=== PATIENT | female | born 1985 | race Two or more races ===

== ENCOUNTER 2024-02-11 21:28 | Inpatient (IN) | payer OTHER ==
[~2024-02-11] VITALS: Ht 165.1 cm; Wt 100.2 kg
[2024-02-11 22:02] VITALS: BP 131/70
[2024-02-11 22:25] VITALS: BP 131/70
[2024-02-11] MEDS ORDERED: AMPICILLIN SODIUM 2,000 MG VIAL IV ONE (22:30)
[2024-02-11] MEDS ORDERED: PRENATAL TABLE1 EAC1 PO (22:33)
[2024-02-11 23:21] LABS: PH,URINE 6.5 (5.0-8.0); URINE APPEARANCE Clear; URINE BILIRRUBIN Negative (NEGATIVE); URINE BLOOD Large; URINE COLOR Yellow; URINE GLUCOSE Negative (NEGATIVE); URINE KETONE Negative (NEGATIVE); URINE LEUKOCYTE Moderate; URINE NITRATE Negative; URINE PROTEIN Trace (NEGATIVE); URINE UROBILINOGEN 0.2 E.U./dl
[2024-02-11 23:22] LABS: URINE BACTERIA 4225.9 uL (0.0-1933); URINE EPITHELIAL CELLS 70.3 uL (0.0-38.8); URINE RBC 31.4 uL (0.0-20.8); URINE WBC 151.2 uL (0.0-23.2)
[2024-02-11 23:30] LABS: HEMATOCRIT 34.8 % (36.0-45.00); HEMOGLOBIN 11.8 g/dL (12.0-15.00); MEAN CELL VOLUME 84.1 fL (80.00-100.00); MEAN CORPUSCULAR HEMOGLOBIN 28.6 pg (27.00-32.0); PLATELET COUNT 340 K/uL (150-450); RED BLOOD COUNT 4.13 M/uL (4.00-6.00); RED CELL DISTRIBUTION WIDTH 13.1 % (11.5-14.5)
[2024-02-11 23:32] VITALS: BP 131/74
[2024-02-11 23:33] LABS: URINE CAST 0.45 uL (0.0-1.40); URINE CRYSTALS MODERATE /HPF
[2024-02-11 23:38] LABS: ALBUMIN 2.8 gm/dL (3.4-5.0); BILIRUBIN TOTAL 0.7 mg/dL (0.3-1.2); CALCIUM 9.1 mg/dL (8.5-10.1); CREATININE SERUM 0.65 mg/dL (0.55-1.02); GFR 102.01; POTASSIUM 3.4 mEq/L (3.5-5.1); TOTAL PROTEIN 6.8 gm/dL (6.4-8.2)
[2024-02-11 23:39] LABS: RH POSITIVE
[2024-02-11 23:44] LABS: INR 0.99; PROTHROMBIN TIME 10.8 SECONDS (9.0-11.5)
[2024-02-12] MEDS ORDERED: AMPICILLIN SODIUM 1,000 MG VIAL IV SCH (01:00)
[2024-02-12 03:23] VITALS: BP 125/70
[2024-02-12 07:57] VITALS: BP 120/54
[2024-02-12 12:01] VITALS: BP 132/65
[2024-02-12] MEDS ORDERED: MISOPROSTOL 25 MCG/4 ML GEL.W.APPL VAG ONE (13:30)
[2024-02-12 15:52] VITALS: BP 139/63
[2024-02-12] MEDS ORDERED: MISOPROSTOL 25 MCG/4 ML GEL.W.APPL VAG NR (18:15)
[2024-02-12 20:55] VITALS: BP 128/69
[2024-02-12 23:32] VITALS: BP 119/52
[2024-02-13] VITALS (11 sets, daily range): BP systolic 115–147; BP diastolic 53–82
[2024-02-13] MEDS ORDERED: MISOPROSTOL 25 MCG TABLET VAG ONE (11:22)
[2024-02-13] MEDS ORDERED: PROMETHAZINE HCL 25 MG/ML AMPUL IV ONE (16:30)
[2024-02-13] MEDS ORDERED: MEPERIDINE HCL/PF 50 MG/ML VIAL IV ONE (16:30)
[2024-02-13] MEDS ORDERED: ONDANSETRON HCL 2 MG/ML VIAL IV ONE (17:30)
[2024-02-13] MEDS ORDERED: OXYTOCIN 20 UNITS/1000ML RL PIGGYBAG IV SCH (20:00)
[2024-02-13] MEDS ORDERED: LIDOCAINE HCL 1% 10ML VIAL IJ ONE (20:00)
[2024-02-13] MEDS ORDERED: IBUprofen 600 MG TABLET PO SCH (20:00)
[2024-02-13] MEDS ORDERED: ERYTHROMYCIN BASE OPHT 1GM EACH TUBE OP ONE (20:00)
[2024-02-13] MEDS ORDERED: CHLORHEXIDINE GLUCONATE 120 ML BOTTLE TOP ONE (20:00)
[2024-02-14 03:05] VITALS: BP 121/56
[2024-02-14 07:40] VITALS: BP 115/53
[2024-02-14 11:55] VITALS: BP 133/78
[2024-02-14 17:12] VITALS: BP 134/79
[2024-02-15] VITALS: BP 132/80
[2024-02-15 08:17] VITALS: BP 146/83
== END 2024-02-15 16:12 | disposition home or self-care (01) | DRG 807 ==
LOC: LDR 21:28 → OB/GYN 02-14 11:03
PROVIDERS: ADMIT Obstetrics & Gynecology Obstetrics; ATTEND Obstetrics & Gynecology Obstetrics
PROC: 4A1HXCZ Monitoring of Products of Conception, Cardiac Rate, External Approach (ICD-10-PCS; 2024-02-11)
PROC: 3E0P7VZ Introduction of Hormone into Female Reproductive, Via Natural or Artificial Opening (ICD-10-PCS; 2024-02-12)
PROC: 10E0XZZ Delivery of Products of Conception, External Approach (ICD-10-PCS; principal; 2024-02-13)
PROC: 0W8NXZZ Division of Female Perineum, External Approach (ICD-10-PCS; 2024-02-13)
PROC: 3E033VJ Introduction of Other Hormone into Peripheral Vein, Percutaneous Approach (ICD-10-PCS; 2024-02-13)
DX: O80 Encounter for full-term uncomplicated delivery (principal); Z37.0 Single live birth; Z3A.39 39 weeks gestation of pregnancy; Z20.822 Contact with and (suspected) exposure to COVID-19